=== PATIENT | female | born 1950 | race Caucasian/White ===

== ENCOUNTER 2018-02-26 06:50 | Observation (INO) | payer OTHER, BC ==
[2018-02-26] MEDS ORDERED: ASPIRIN 81 MG CHEWABLE TAB PO ONE (06:52)
--- NOTE | 2018-02-26 07:46 | EDPHY ---
H & P Time Seen by Provider: 02/26/18 07:07 HPI/ROS: HPI Chest pain. 67-year-old female by private vehicle with her . This patient complains of intermittent mid anterior substernal chest pain described as a pressure-like sensation which comes on randomly but seems to be more noticeable when she is exerting herself. Pain described as an ache in her mid chest. She sometimes has some radiation of the pain to her back left shoulder. She reports the pain has gotten worse over the last couple of days and was worse this morning. No associated shortness of breath. She does have a history of GERD but states that this discomfort is different from that pain. Nonsmoker. No history of hypertension, hyperlipidemia or diabetes. No significant family history. ROS: Constitutional: No fever, no chills. No weakness. Eyes: No discharge. No changes in vision. ENT: No sore throat. No nasal congestion or rhinorrhea. Respiratory: No cough. No shortness of breath. Cardiac: As above, no palpitations. Gastrointestinal: No abdominal pain, no vomiting, no diarrhea. Genitourinary: No hematuria. No dysuria or increased frequency with urination. Musculoskeletal: No back pain. No neck pain. No myalgias or arthralgias. Skin: No rashes. Neurological: No headache. No focal weakness or altered sensation. Past medical history: Ablation, cholecystectomy. Social history: Nonsmoker. No alcohol. Here with her . Physical Exam: General Appearance: Alert, no distress. This patient is responding to questions appropriately and in full sentences. This patient appears well- hydrated and well-nourished. Eyes: Pupils equal and round no pallor or injection. No lid edema, erythema or injection. Respiratory: There are no retractions, lungs are clear to auscultation with good air movement bilaterally. Cardiovascular: Regular rate and rhythm. No murmur. Gastrointestinal: Abdomen is soft and nontender, no masses, bowel sounds normal. No focal tenderness at McBurney's point. No Kennedy sign. Neurological: Motor sensory function is grossly intact. Cranial nerves are normal. Gait is normal. Skin: Warm and dry, no rashes on inspection of the chest wall. Musculoskeletal: Neck is supple and nontender. Extremities are symmetrical. All joints range without pain or impingement. Psychiatric: No agitation. No depression. Database: EKG: EKG time is 7:13 a.m.; EKG shows a narrow complex normal sinus rhythm with a ventricular rate of 80. Mild J-point elevation in lead 1 and aVL. Borderline T- wave abnormalities in the anterior leads. The FL, QRS, QT intervals are within normal limits. No other ST-T wave changes indicative of ischemic or injury pattern. No evidence of right heart strain. Interpreted by me. Imaging: Chest x-ray AP portable; the cardiac mediastinal silhouette is unremarkable. No evidence of infiltrate or pneumothorax. No acute cardiopulmonary disease process noted. Interpreted by me. Procedures: Emergency department course: Triage vital signs reviewed. She is hypertensive. Vital signs are otherwise unremarkable. IV placed. She was given 324 mg of chewed aspirin. She currently does not have any significant chest pain. EKG obtained and reviewed by myself. 8:15 a.m., the patient remains comfortable. Results of her diagnostic workup in the emergency department discussed with her and her . Plan for observation admission and further testing reviewed. All of their questions were answered. They endorse. 8:15 a.m., patient's blood pressure currently is elevated in the 200s over low 100s. She will be given low-dose IV labetalol to bring this down to the 160- 180 systolic range. 8:20 a.m., spoke with on-call hospitalist, case discussed in detail. The patient's troponin is elevated. This was discussed. The patient has received 324 mg of chewed aspirin. Patient accepted to admission telemetry observation under the care of Dr. Cordero. He will be down to see this patient shortly. The patient currently does not have any chest pain. Lovenox and heparin will be held at this time. 9:00 a.m., the patient was evaluated by both Dr. Cordero and Dr. Stoll of the Cardiology Service. Plan will be to take her to the dental laboratory technician apprentice at 11:00 a.m.. Differential Diagnosis: The differential diagnosis on this patient includes but is not limited to acute coronary syndrome, GERD. PE, myocarditis, pericarditis, aortic dissection unlikely. This represents a partial list of diagnoses considered. These considerations are based on history, physical exam, past history, reassessment and diagnostic testing. Smoking Status: Never smoked Constitutional: Initial Vital Signs Temperature (C) 36.7 C 02/26/18 06:54 Heart Rate 79 02/26/18 06:54 Respiratory Rate 16 02/26/18 06:54 Blood Pressure 201/117 H 02/26/18 06:54 O2 Sat (%) 95 02/26/18 06:54 O2 Delivery Mode Room Air Allergies/Adverse Reactions: No Known Allergies Allergy (Unverified 02/26/18 06:58) Home Medications: Medication Instructions Recorded Pantoprazole Sodium 02/26/18 Medical Decision Making - Diagnostics Imaging Results: Imaging Impressions Chest X-Ray 02/26/18 06:52 Impression: Chest negative for acute abnormality. - Data Points Laboratory Results: Laboratory Results 02/26/18 07:50 02/26/18 07:50 02/26/18 02/26/18 02/26/18 07:54 07:50 07:50 WBC RBC Hgb Hct MCV MCH MCHC RDW Plt Count MPV Neut % (Auto) Lymph % (Auto) [place] % (Auto) Eos % (Auto) Baso % (Auto) Nucleat RBC Rel Count Absolute Neuts (auto) Absolute Lymphs (auto) Absolute Monos (auto) Absolute Eos (auto) Absolute Basos (auto) Absolute Nucleated RBC Immature Gran % Immature Gran # PT REJ INR REJ APTT REJ Sodium 141 mEq/L mEq/L (135-145) Potassium 4.5 mEq/L mEq/L (3.3-5.0) Chloride 109 mEq/L mEq/L (97-110) Carbon Dioxide 21 mEq/l L mEq/l (22-31) Anion Gap 11 mEq/L mEq/L (6-14) BUN 13 mg/dL mg/dL (7-23) Creatinine 0.6 mg/dL mg/dL (0.6-1.0) Estimated GFR > 60 Glucose 93 mg/dL mg/dL (70-100) Calcium 9.9 mg/dL mg/dL (8.5-10.4) Total Bilirubin 0.8 mg/dL mg/dL (0.1-1.4) Conjugated Bilirubin 0.3 mg/dL mg/dL (0.0-0.5) Unconjugated Bilirubin 0.5 mg/dL mg/dL (0.0-1.1) AST 29 IU/L IU/L (14-46) ALT 27 IU/L IU/L (9-52) Alkaline Phosphatase 85 IU/L IU/L (38-126) POC Troponin I 0.13 ng/mL H ng/mL (0.00-0.08) Total Protein 7.9 g/dL g/dL (6.3-8.2) Albumin 4.4 g/dL g/dL (3.5-5.0) Lipase 88 IU/L IU/L (23-300) Specimen Hemolysis 110 02/26/18 07:50 WBC REJ RBC REJ Hgb REJ Hct REJ MCV REJ MCH REJ MCHC REJ RDW REJ Plt Count REJ MPV REJ Neut % (Auto) REJ Lymph % (Auto) REJ [place] % (Auto) REJ Eos % (Auto) REJ Baso % (Auto) REJ Nucleat RBC Rel Count REJ Absolute Neuts (auto) REJ Absolute Lymphs (auto) REJ Absolute Monos (auto) REJ Absolute Eos (auto) REJ Absolute Basos (auto) REJ Absolute Nucleated RBC REJ Immature Gran % REJ Immature Gran # REJ PT INR APTT Sodium Potassium Chloride Carbon Dioxide Anion Gap BUN Creatinine Estimated GFR Glucose Calcium Total Bilirubin Conjugated Bilirubin Unconjugated Bilirubin AST ALT Alkaline Phosphatase POC Troponin I Total Protein Albumin Lipase Specimen Hemolysis Medications Given: Discontinued Medications Aspirin (Aspirin) 324 mg PO EDNOW ONE Stop: 02/26/18 06:53 Last Admin: 02/26/18 08:06 Dose: 324 mg Labetalol HCl (Trandate Injection) 5 mg IVP EDNOW ONE Stop: 02/26/18 08:20 Last Admin: 02/26/18 08:39 Dose: Not Given Metoprolol Tartrate (Lopressor Injection) 5 mg IVP ONCE ONE Stop: 02/26/18 08:21 Last Admin: 02/26/18 08:39 Dose: 5 mg Point of Care Test Results: Chemistry 02/26/18 07:54 POC Troponin I 0.13 ng/mL H ng/mL (0.00-0.08) Departure - Departure Disposition: [facility] Inpatient Acute Clinical Impression: Chest pain
[2018-02-26] MEDS ORDERED: LABETALOL HCL 5 MG/ML 20 ML MDV IVP ONE (08:19)
[2018-02-26] MEDS ORDERED: METOPROLOL TARTRATE 5 MG/5 ML INJ IVP ONE (08:20)
[2018-02-26] MEDS ORDERED: NITROGLYCERIN 0.4 MG BTL SL PRN (08:20)
[2018-02-26] MEDS ORDERED: NITROGLYCERIN 2% 1 GM PACKET ONE (09:01)
[2018-02-26] MEDS ORDERED: NITROGLYCERIN 2% 1 GM PACKET TP ONE (09:03)
[2018-02-26] MEDS ORDERED: ZOLPIDEM TARTRATE 5 MG TAB PO PRN (09:04)
[2018-02-26] MEDS ORDERED: ACETAMINOPHEN 325 MG TAB PO PRN (09:04)
[2018-02-26] MEDS ORDERED: ONDANSETRON 4 MG/2 ML VIAL IVP PRN (09:04)
--- NOTE | 2018-02-26 09:12 | PDGENHP ---
History and Physical History and Physical: CC: Chest pain HISTORY: This patient started having onset of a new chest pain syndrome approximately 1 week ago. She describes intermittent episodes of a substernal pressure like ache associated with diaphoresis. This comes in episodes that have sometimes been associated with exertion such as walking to her daughter's house next door with resolution of the symptom when she stops walking. Other episodes come at rest. Last night she had several episodes that kept her awake through the night. There has been no shortness of breath, no cough no fever, no leg pain, no pleuritic pain or sharp pain. This pain is clearly very different than her usual reflux related symptom which is a substernal burning sensation associated with sour taste in the back of throat. She has never had any coronary or other vascular disease in the past and has no other blood vessel issues. She has a history of atrial fibrillation treated by ablation and is not requiring medications for that though admits that rarely she will get a brief episode of palpitations. She has never had any heart failure and does not endorse any symptoms to suggest heart failure. She has never been a smoker but she does have routinely blood pressures measured in the 150s systolic but has never been treated for blood pressure. She does not have any history of diabetes, hyperlipidemia, thromboembolic disease, bleeding disorder, and has no history of renal disease. Her father had some type of heart episode in his 60s but there physicians were never sure whether he had actual heart attack. It does not sound like he had stents or bypass. No other family history. ROS: A comprehensive 10 system review revealed no other significant findings PAST MEDICAL HISTORY: Cholecystectomy Endometrial cyst removed High blood pressures FAMILY MEDICAL HISTORY: No documented coronary disease or vascular disease though her father was suspected to have had possible heart attack in his 60s Sister with pancreatic cancer SOCIAL HISTORY: Nonsmoker Rare use of alcohol in small amounts Retired high school english teacher Moved here from [place] to be near her children 6 months ago and her is here at the bedside with her Not tremendously physically active but does go for daily walks MEDICATIONS: The patients list has been reconciled by our clinical pharmacist in the EMR. I have reviewed the list and ordered appropriate medicines. PHYSICAL EXAMINATION: Vital Signs: Significant blood pressure at 220/117, normal pulse respirations temperature Knitted Goods Shaper: Sinus rhythm Examination: General: alert, oriented, good mentation, relaxed Skin: warm, dry, good color, no rash HEENT: normal Neck: no mass or jvd Resps: relaxed Lungs: clear breath sounds Heart: regular, no murmur Abdomen: soft, nondistended, nontender, +BS, no mass Upper Extremities: normal Lower Extremities: no edema, warm No Bleeding or bruising Neurologic: normal speech/language, normal director inpatient headache program, no focal weakness IV site: looks normal LABORATORY DATA: Troponin 0.13 Otherwise unremarkable chemistry panels RADIOLOGY STUDIES: I reviewed images from chest x-ray done in the ER, single view AP: There is no enlargement heart, no aneurysm, no heart failure or other abnormalities 12 LEAD EKG: Sinus rhythm with ST and T-wave abnormalities in the anterior leads that could include a very mild ST elevation in V2 and T-wave inversion in V3 ASSESSMENT: * NSTEMI * Uncontrolled hypertension with a history of untreated systolic hypertension * Absence of heart failure at this time * Sinus rhythm with prior history of ablation for AFib 2005, patient reports rare episodes of palpitations since then PLANS: * Coronary angiography to be done this morning * I have made the patient NPO * She is given aspirin in the ER * I have given her dose of 5 mg IV metoprolol * Further management for blood pressure and any recurring angina as indicated * Follow on youth nutritional monitor * Check lipids and follow blood sugars I have reviewed the patient's case in detail with Dr. Ha Stoll and reviewed all of the above for the patient and at the bedside with Dr. Stoll
[2018-02-26] MEDS ORDERED: NS 1,000 ML IV SCH (09:15)
--- NOTE | 2018-02-26 09:23 | CPEKG ---
Test Reason : OPEN Blood Pressure : / mmHG Vent. Rate : 081 BPM Atrial Rate : 079 BPM P-R Int : 147 ms QRS Dur : 081 ms QT Int : 373 ms P-R-T Axes : 026 -13 031 degrees QTc Int : 433 ms Sinus rhythm Abnormal R-wave progression, early transition Borderline T abnormalities, anterior leads Confirmed by Jamison Sapp ([id number]) on 02/26/2018 9:23:23 AM Referred By: Confirmed By:Jamison Sapp
[2018-02-26 09:30] LABS: PLATELET COUNT 249 10^3/uL (150-400)
[2018-02-26 09:48] LABS: INR 0.93 (0.83-1.16); PROTIME(PATIENT) 12.7 SEC (12.0-15.0)
--- NOTE | 2018-02-26 11:15 | PDCARCONS ---
Cardiology Consult Reason for Consult: Chest pain Chief Complaint: Chest pain Requesting Physician: Gil History of Present Illness: 67-year-old female history of hypertension, history of atrial fibrillation status post ablation with several week history of progressive substernal chest pressure different from her standard reflux symptomatology. This began occurring at rest or with minimal exertion. It was substernal in nature. Was associated with maybe mild nausea. There was no associated diaphoresis. On my arrival she is pain-free. Initial EKG shows early transition across the precordium with lateral T-wave inversions. Her troponin is elevated and I am asked to comment on further risk stratification. Patient has history of atrial fibrillation status post ablation. Cardiac Risk includes remote tobacco abuse, hypertension. She has known history of hyperlipidemia or diabetes. She has no family history of early heart disease. Patient has been hypertensive on occasion. Blood pressure today was 200/125 which was quite high for her. Over the duration of this illness she has been normotensive by cuff at home. History Information - Allergies/Home Medication List Allergies/Adverse Reactions: No Known Allergies Allergy (Unverified 02/26/18 06:58) Home Medications: Pantoprazole Sodium [Protonix 40mg (*)] 40 mg PO DAILY 02/26/18 [Last Taken 18:00] Past Medical History: - Past Medical History atrial fibrillation, hypertension - Surgical History Additional surgical history: AFib ablation - Family History Positive for: non-pertinent - Social History Smoking Status: Never smoked Cardiac History - Cardiac History Past Cardiac History: ABLATION Cardiac Risk Factors: hypertension (>140/90) Timing/Duration: Weeks Severity: moderate Severity Scale: 6 Location: substernal Activities at Onset: activity, rest Modifying Factors: improves with: rest JOSE Risk Evaluation age greater or equal to 65: yes greater or equal to 3 CAD risk factors: no known CAD(stenosis greater or eqaul to 50%): no ASA use in past 7 days: yes severe angina(greater or equal to 2 episodes in 24hrs): yes EKG ST changes greater or equal to 0.5mm: yes positive cardiac marker: yes Total Score: 6 JOSE Score: 40.9% risk Physical Exam Physical Exam: Temp Pulse Resp BP Pulse Ox 36.7 C 69 16 167/98 H 97 02/26/18 06:54 02/26/18 09:40 02/26/18 09:40 02/26/18 09:40 02/26/18 09:40 Constitutional: no apparent distress Ears, Nose, Mouth, Throat: moist mucous membranes Cardiovascular: regular rate and rhythym, no murmur, rub, or gallop, No JVD Peripheral Pulses: 1+: carotid (R), carotid (L), femoral (R), femoral (L) Respiratory: no respiratory distress, no rales or rhonchi Gastrointestinal: normoactive bowel sounds, soft, non-tender abdomen, No hepatosplenomegally Genitourinary: no bladder fullness Skin: warm, normal color Musculoskeletal: full muscle strength, no muscle tenderness Neurologic: AAOx3, No facial droop Psychiatric: interacting appropriately, not anxious Lymph, Heme, Immunologic: no cervical LAD, no supraclavicular LAD Lab and Imaging 02/26/18 09:21 02/26/18 07:50 WBC 5.97 10^3/uL (3.80-9.50) 02/26/18 09:21 RBC 4.03 10^6/uL (4.18-5.33) L 02/26/18 09:21 Hgb 13.1 g/dL (12.6-16.3) 02/26/18 09:21 Hct 37.5 % (38.0-47.0) L 02/26/18 09:21 MCV 93.1 fL (81.5-99.8) 02/26/18 09:21 MCH 32.5 pg (27.9-34.1) 02/26/18 09:21 MCHC 34.9 g/dL (32.4-36.7) 02/26/18 09:21 RDW 11.8 % (11.5-15.2) 02/26/18 09:21 Plt Count 249 10^3/uL (150-400) 02/26/18 09:21 MPV 10.3 fL (8.7-11.7) 02/26/18 09:21 Neut % (Auto) 51.1 % (39.3-74.2) 02/26/18 09:21 Lymph % (Auto) 37.2 % (15.0-45.0) 02/26/18 09:21 [place] % (Auto) 7.7 % (4.5-13.0) 02/26/18 09:21 Eos % (Auto) 2.5 % (0.6-7.6) 02/26/18 09:21 Baso % (Auto) 1.3 % (0.3-1.7) 02/26/18 09:21 Nucleat RBC Rel Count 0.0 % (0.0-0.2) 02/26/18 09:21 Absolute Neuts (auto) 3.05 10^3/uL (1.70-6.50) 02/26/18 09:21 Absolute Lymphs (auto) 2.22 10^3/uL (1.00-3.00) 02/26/18 09:21 Absolute Monos (auto) 0.46 10^3/uL (0.30-0.80) 02/26/18 09:21 Absolute Eos (auto) 0.15 10^3/uL (0.03-0.40) 02/26/18 09:21 Absolute Basos (auto) 0.08 10^3/uL (0.02-0.10) 02/26/18 09:21 Absolute Nucleated RBC 0.00 10^3/uL (0-0.01) 02/26/18 09:21 Immature Gran % 0.2 % (0.0-1.1) 02/26/18 09:21 Immature Gran # 0.01 10^3/uL (0.00-0.10) 02/26/18 09:21 PT 12.7 SEC (12.0-15.0) 02/26/18 09:21 INR 0.93 (0.83-1.16) 02/26/18 09:21 APTT 25.2 SEC (23.0-38.0) 02/26/18 09:21 Sodium 141 mEq/L (135-145) 02/26/18 07:50 Potassium 4.5 mEq/L (3.3-5.0) 02/26/18 07:50 Chloride 109 mEq/L (97-110) 02/26/18 07:50 Carbon Dioxide 21 mEq/l (22-31) L 02/26/18 07:50 Anion Gap 11 mEq/L (6-14) 02/26/18 07:50 BUN 13 mg/dL (7-23) 02/26/18 07:50 Creatinine 0.6 mg/dL (0.6-1.0) 02/26/18 07:50 Estimated GFR > 60 02/26/18 07:50 Glucose 93 mg/dL (70-100) 02/26/18 07:50 Calcium 9.9 mg/dL (8.5-10.4) 02/26/18 07:50 Total Bilirubin 0.8 mg/dL (0.1-1.4) 02/26/18 07:50 Conjugated Bilirubin 0.3 mg/dL (0.0-0.5) 02/26/18 07:50 Unconjugated Bilirubin 0.5 mg/dL (0.0-1.1) 02/26/18 07:50 AST 29 IU/L (14-46) 02/26/18 07:50 ALT 27 IU/L (9-52) 02/26/18 07:50 Alkaline Phosphatase 85 IU/L (38-126) 02/26/18 07:50 POC Troponin I 0.13 ng/mL (0.00-0.08) H 02/26/18 07:54 Troponin I 0.099 ng/mL (0.000-0.034) H 02/26/18 07:50 Total Protein 7.9 g/dL (6.3-8.2) 02/26/18 07:50 Albumin 4.4 g/dL (3.5-5.0) 02/26/18 07:50 Triglycerides 247 mg/dL (35-135) H 02/26/18 07:50 Cholesterol 273 mg/dL (140-220) H 02/26/18 07:50 Cholesterol Risk Factr 1.8 (0.2-1.0) H 02/26/18 07:50 LDL Cholesterol, Calc 181 mg/dL (80-100) H 02/26/18 07:50 LDL Risk Factor 1.6 (0.2-1.0) H 02/26/18 07:50 VLDL Cholesterol 49 mg/dL (8-25) H 02/26/18 07:50 Non-HDL Cholesterol 230 mg/dL (90-129) H 02/26/18 07:50 HDL Cholesterol 43 mg/dL (40-85) 02/26/18 07:50 LDL/HDL Ratio 4.20 RATIO (1.00-3.22) H 02/26/18 07:50 Cholesterol/HDL Ratio 6.35 RATIO (1.00-4.44) H 02/26/18 07:50 Lipase 88 IU/L (23-300) 02/26/18 07:50 Specimen Hemolysis 110 02/26/18 07:50 EKG additional interpertation: Sinus rhythm with early transition. T-wave inversions. A/P Assessment: 67-year-old female clearly hyperlipidemic, clearly hypertensive with several week history of progressive substernal chest pressure typical of angina. This is associated with an abnormal EKG, elevated troponin and resting symptoms. Recommend diagnostic coronary angiogram for risk stratification and intervention. Risks and benefits of this approach were discussed with patient Pending results will pursue aggressive secondary prevention. LDL cholesterol should be less than 70 mg/dL, blood pressure will likely need medical therapy. Clinical follow-up post angiogram. Plan: Cardiac catheterization Review of Systems Review of Systems: - Review of Systems Constitutional: no symptoms reported EENTM: no symptoms reported Respiratory: no symptoms reported Cardiac: see HPI Gastrointestinal/Abdominal: no symptoms reported Genitourinary: no symptoms Musculoskelatal: no symptoms Skin: no symptoms Neurological: no symptoms Hematologic/Lymphatic: no symptoms reported Immunologic/allergic: no symptoms reported
--- NOTE | 2018-02-26 11:38 | PDPROPOC ---
Sedation Plan of Care Sedation Plan of Care: vital signs stable, mental status noted, patient educated of risks, benefits, alternatives, patient can tolerate sedation ASA Classification: ASA 2 Planned drugs: fentanyl, midazolam Mallampati Score: Class 1 Mallampati Reference Image: Patient passed 3-3-2 rule?: Yes
[2018-02-26] MEDS ORDERED: LIDOCAINE 1% 300 MG/30 ML SDV ONE (11:41)
[2018-02-26] MEDS ORDERED: IOPAMIDOL (ISOVUE-370) 150 ML BTL IV ONE (11:42)
[2018-02-26] MEDS ORDERED: MIDAZOLAM 2 MG/2 ML VIAL ONE (11:42)
[2018-02-26] MEDS ORDERED: fentaNYL 100 MCG/2 ML INJ ONE (11:42)
[2018-02-26] MEDS ORDERED: VERAPAMIL 5 MG/2 ML VIAL ONE (11:42)
[2018-02-26] MEDS ORDERED: HEPARIN 10,000 UNIT/10 ML MDV (1,000 UNIT/ML) ONE (11:42)
[2018-02-26] MEDS ORDERED: NITROGLYCERIN 1,500 MCG/15 ML VIAL MISC ONE (12:57)
[2018-02-26] MEDS ORDERED: CLOPIDOGREL BISULFATE 75 MG TAB ONE (13:09)
[2018-02-26] MEDS ORDERED: CLOPIDOGREL BISULFATE 75 MG TAB PO ONE (13:27)
--- NOTE | 2018-02-26 13:46 | PDDXCAT ---
Diagnostic Cath Note - . Date: 02/26/18 Loan Approver: Jerman Indication: CCC Class III and IV angina on medical treatment - Procedure Access: right wrist Procedure: left heart catheterization, coronary angiography, left ventriculogram - Materials Left Heart Cath size: 5F Left Heart Cath materials: pigtail, other ([place]) - Findings-Left Heart Catheterization LM: Unobstructed LAD: Large vessel extending to the apex. Large principal septal internal controls manager, moderate 1st diagonal. Subtotal stenosis in the proximal segment LCX: Large vessel giving rise to 2 obtuse marginal branches RCA: Dominant: Unobstructed EDP: 15 mm of mercury LVEF: 64% Wall motion: Apical hypokinesis Complications: None Estimated blood loss: <50ml Closure method: TR Band Assessment: Acute coronary syndrome with subtotal proximal LAD stenosis. Plan: PCI Intervention: Procedure: PCI and stenting of the proximal LAD. Indications: Acute coronary syndrome After reviewing diagnostic angiograms it was elected to proceed with emergency PCI. Patient was anticoagulated with heparin. Using a 5 Prydeinig JL4 guiding catheter left main coronary selectively intubated using a 0.014 intuition wire the LAD stenosis was crossed and the wire placed in the distal vessel. 3.0 x 12 mm synergy stent was used to primarily stent the LAD stenosis. Patient was administered intracoronary nitroglycerin. Repeat angiogram showed JOSE grade 3 flow. Conclusions: Successful PCI and stenting of the proximal LAD Patient be treated aggressively with secondary prevention goals in mind. This includes high-dose statin therapy beta-sulaiman Royal inhibition dual antiplatelet therapy with clinical follow-up. Results discussed with the patient her family and her son who was a physician. Patient Problems: Problems Problem Status Onset Chest pain Acute
[2018-02-26] MEDS: LISINOPRIL/HCTZ 20/12.5MG 1 EA TAB PO SCH (14:50)
[2018-02-26] MEDS: METOPROLOL TARTRATE 50 MG TAB PO SCH ×2 (14:51→21:09)
[2018-02-26] MEDS: ATORVASTATIN CALCIUM 40 MG TAB PO SCH (14:51)
[2018-02-26] MEDS ORDERED: MELATONIN 3 MG TAB PO SCH (21:00)
[2018-02-27 04:39] LABS: PLATELET COUNT 221 10^3/uL (150-400)
[2018-02-27] MEDS: LISINOPRIL/HCTZ 20/12.5MG 1 EA TAB PO SCH (08:07)
[2018-02-27] MEDS: METOPROLOL TARTRATE 50 MG TAB PO SCH (08:07)
[2018-02-27] MEDS: ATORVASTATIN CALCIUM 40 MG TAB PO SCH (08:07)
[2018-02-27] MEDS ORDERED: ASPIRIN EC 325 MG TAB PO SCH (09:00)
[2018-02-27] MEDS ORDERED: CLOPIDOGREL BISULFATE 75 MG TAB PO SCH (09:00)
--- NOTE | 2018-02-27 11:32 | PDDCSUM ---
Discharge Summary Discharge Summary: Admission date: 02/26/2018 Discharge date: 02/27/2018. Admission diagnosis acute coronary syndrome Discharge diagnosis acute coronary syndrome Status post insertion of a drug-eluting stent in the left anterior descending coronary artery Hypertension Hyperlipidemia Coronary artery disease Procedures: Left heart catheterization coronary ventricular angiography followed by PCI and stenting Follow-up Jerman one-week/ cardiac rehabilitation. Medications per attached computer sheet. Hospital course: 67-year-old female admitted to the hospital with acute coronary syndrome. She was taken the cardiac crime lab analyst and had directed PCI of the proximal LAD. She has small apical hypokinetic segment. She was started on aggressive secondary prevention for risk factors including significant hypertension, hyperlipidemia. She tolerated this well. She was up ambulating is ready for discharge. Physical examination revealed a radial artery puncture site to be healing well without erythema or edema. Her chest was clear to auscultation percussion. Cardiac exam showed a regular rate and rhythm without gallop. Blood pressure was 130/70 with a heart rate of 54. Long discussion was held regarding lifestyle modifications including whole food plant based diet, exercise. Her family was present. All questions were answered. She is discharged home with follow-up in 1 week.
--- NOTE | 2018-02-27 11:51 | HOSPPROG ---
Hospitalist Progress Note Assessment/Plan: DIAGNOSES: NSTEMI CAD I reviewed her case in detail again today with Dr. Ha Stoll I had an extensive conversation with the patient and her family today regarding her diagnosis, her procedure, the outcomes, as well as follow-up plans and many issues related to lifestyle modification and risk reduction strategies. Answered many questions that they had in detail. PLANS: * Discharge to home today on aspirin Plavix and statin * Follow-up in 1 week in [facility] * She is given warning signs and instructions related to her wrist SUBJECTIVE: Feels much better, no angina, no heart failure symptoms or palpitations No pain discomfort or other trouble at her angiography access site OBJECTIVE Vitals reviewed: Stable without fever Obstetrical Tech, my review: Sinus Exam: alert oriented skin warm dry color ok resps not labored lungs clear BSs heart regular abd soft nondistended nontender, bowel sounds present limbs warm, no edema iv site ok Objective: Vital Signs Temp Pulse Resp BP Pulse Ox 36.9 C 83 18 176/89 H 96 02/27/18 08:00 02/27/18 08:00 02/27/18 08:00 02/27/18 08:00 02/27/18 08:00 Laboratory Results 02/27/18 03:10 02/27/18 03:10 02/26/18 02/27/18 02/28/18 06:59 06:59 06:59 Intake Total 2850 Output Total 1000 Balance 1850 PT 12.7 SEC (12.0-15.0) 02/26/18 09:21 INR 0.93 (0.83-1.16) 02/26/18 09:21 ICD10 Worksheet Patient Problems: Problems Problem Status Onset Acute coronary syndrome Acute Chest pain Acute Hyperlipidemia Acute Hypertension Acute 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
[2018-02-27 12:04] VITALS: BP 144/82
--- NOTE | 2018-02-27 15:46 | CPEKG ---
Test Reason : OPEN Blood Pressure : / mmHG Vent. Rate : 062 BPM Atrial Rate : 061 BPM P-R Int : 163 ms QRS Dur : 083 ms QT Int : 502 ms P-R-T Axes : 045 -02 124 degrees QTc Int : 510 ms Sinus rhythm Abnrm T, probable ischemia, anterolateral lds Prolonged QT interval Confirmed by Solo Agrawal ([id number] on 02/27/2018 3:45:43 PM Referred By: Confirmed By:Solo Agrawal
== END 2018-02-27 12:43 | disposition home or self-care (01) ==
LOC: F2W 14:10
PROVIDERS: ADMIT Internal Medicine; ATTEND Internal Medicine
DX: I24.9 Acute ischemic heart disease, unspecified (principal); I25.10 Atherosclerotic heart disease of native coronary artery without angina pectoris; E78.5 Hyperlipidemia, unspecified; I10 Essential (primary) hypertension
CPT/HCPCS: 71045; 93005; 93458; 96374; 99285; C1769; C1874; C1887; C9600; G0378; J1200; J1644; J2250; J3010; Q9967; 84484-PO

== ENCOUNTER → 2018-09-03 | Outpatient (CLI) | payer OTHER, BC | LOC: FIMAGING 11:03 | PROVIDERS: ATTEND Internal Medicine | DX: M26.622 Arthralgia of left temporomandibular joint (principal) ==